=== PATIENT | male | born 1975 | race Hispanic/Latino ===

== ENCOUNTER 2017-11-10 04:34 | Emergency (ER) | payer SELFPAY ==
[2017-11-10] MEDS ORDERED: MOTRIN PO ONE (05:45)
[2017-11-10] MEDS ORDERED: PERCOCET 5/325 PO ONE (05:45)
--- NOTE | 2017-11-10 05:54 | Emergency Department Report ---
ED Extremity Problem HPI - General Chief complaint: Pain General Stated complaint: RT HAND INJURY Time Seen by Provider: 11/10/17 05:39 Source: patient Mode of arrival: Ambulatory Limitations: No Limitations - History of Present Illness Initial comments: Patient is a 42-year-old male who is complaining of pain at the right elbow and some sensation to the right fourth and fifth digits. Patient states 2 days ago he was swinging a hammer and he felt pops sensation in his right elbow. Patient states he physically felt as though something popped out of place is able to straighten his elbow out and pulled his arm to the point where he didn't feel as though it was deformed anymore. Since that time patient has had pain in the fourth and fifth digit. Patient states they feel cold. Patient states the pain is 10 out of 10 in severity. - Related Data Previous Rx's Medication Instructions Recorded Last Taken Type Cetirizine HCl [ZyrTEC] 10 mg PO DAILY #30 tab.chew 12/11/15 Unknown Rx Permethrin 5% [Acticin 5% CREAM] 1 applicatio TP ONCE #1 tube 12/20/15 Unknown Rx Acetaminophen/Codeine [Tylenol #3] 1 tab PO Q6H PRN #12 tab 03/15/16 Unknown Rx HYDROcodone/APAP 5-325 [[place] 1 each PO Q6HR PRN #15 tablet 11/10/17 Unknown Rx 5/325] Ibuprofen [Motrin] 800 mg PO Q8HR PRN #20 tablet 11/10/17 Unknown Rx Allergies Allergy/AdvReac Type Severity Reaction Status Date / Time No Known Allergies Allergy Unverified 03/04/15 13:58 ED Review of Systems ROS: Stated complaint: RT HAND INJURY Other details as noted in HPI Comment: All other systems reviewed and negative ED Past Medical Hx - Past Medical History Previous Medical History?: No - Surgical History Past Surgical History?: Yes Additional Surgical History: kirti femoral bone fx s/p - Social History Smoking Status: Never Smoker Substance Use Type: Alcohol - Medications Home Medications: Home Medications Medication Instructions Recorded Confirmed Last Taken Type Cetirizine HCl [ZyrTEC] 10 mg PO DAILY #30 tab.chew 12/11/15 Unknown Rx Permethrin 5% [Acticin 5% CREAM] 1 applicatio TP ONCE #1 tube 12/20/15 Unknown Rx Acetaminophen/Codeine [Tylenol #3] 1 tab PO Q6H PRN #12 tab 03/15/16 Unknown Rx HYDROcodone/APAP 5-325 [[place] 1 each PO Q6HR PRN #15 tablet 11/10/17 Unknown Rx 5/325] Ibuprofen [Motrin] 800 mg PO Q8HR PRN #20 tablet 11/10/17 Unknown Rx ED Physical Exam - General Limitations: No Limitations General appearance: alert, in no apparent distress - Head Head exam: Present: atraumatic, normocephalic - Eye Eye exam: Present: normal appearance - ENT ENT exam: Present: mucous membranes moist - Neck Neck exam: Present: normal inspection - Respiratory Respiratory exam: Present: normal lung sounds bilaterally. Absent: respiratory distress - Cardiovascular Cardiovascular Exam: Present: regular rate, normal rhythm. Absent: systolic murmur, diastolic murmur, rubs, gallop - GI/Abdominal GI/Abdominal exam: Present: soft, normal bowel sounds - Rectal Rectal exam: Present: deferred - Extremities Exam Extremities exam: Present: normal inspection, tenderness (patient states he has some modest discomfort in the right elbow. Patient also states that the fourth and fifth fingers are painful on palpation as well. There is some decreased capillary refill on those fingers however he does have some reddening of the area nail bed. These 2 fingers are cooler to touch than the other fingers. He has full range of motion to all of his fingers on his right hand. Palm of the hand is unaffected as well. Patient has a good radial pulse present.). Absent : joint swelling - Back Exam Back exam: Present: normal inspection - Neurological Exam Neurological exam: Present: alert, oriented X3 - Psychiatric Psychiatric exam: Present: normal affect, normal mood - Skin Skin exam: Present: warm, dry, intact, normal color. Absent: rash ED Course Vital Signs 11/10/17 11/10/17 04:52 05:17 Temperature 98.3 F Pulse Rate 63 Respiratory 16 16 Rate Blood Pressure 132/90 O2 Sat by Pulse 98 98 Oximetry ED Medical Decision Making - Medical Decision Making X-ray of the hand and right elbow showed no bony abnormality. Patient was placed in a posterior long-arm splint and will be discharged to follow-up with Dr. Jacinto with orthopedics. Critical care attestation.: If time is entered above; I have spent that time in minutes in the direct care of this critically ill patient, excluding procedure time. ED Disposition Clinical Impression: Injury of musculoskeletal system Disposition: DC- TO HOME OR SELFCARE Is pt being admited?: No Does the pt Need Aspirin: No Condition: Stable Instructions: Elbow Sprain (ED) Referrals: BRYAN JACINTO MD [Staff Physician] - 3-5 Days Time of Disposition: 05:54
--- NOTE | 2017-11-10 06:02 | XRay Report ---
FINAL REPORT PROCEDURE: XR ELBOW 2V RT TECHNIQUE: RIGHT elbow radiographs, including AP and lateral views. HISTORY: Right hand numbness COMPARISON: No prior studies are available for comparison. FINDINGS: Fracture (s) and/or Dislocation(s): None . Alignment: Normal . Joint space(s): Normal . Soft tissues: Normal . Bone mineralization: Normal . Foreign bodies: None . IMPRESSION: Normal Examination
--- NOTE | 2017-11-10 06:23 | XRay Report ---
FINAL REPORT PROCEDURE: XR HAND 2V RT TECHNIQUE: RIGHT hand radiographs, AP, lateral, and oblique views. CPT 77868-VF HISTORY: Right hand numbness COMPARISON: No prior studies are available for comparison. FINDINGS: Fracture (s) and/or Dislocation(s): None . Alignment: Normal . Joint space(s): Normal . Soft tissues: Normal . Bone mineralization: Normal . Foreign bodies: None . IMPRESSION: Normal Examination .
[2017-11-10 06:28] VITALS: BP 109/70
== END 2017-11-10 06:27 | disposition home or self-care (01) ==
LOC: ED 04:34
DX: S59.901A Unspecified injury of right elbow, initial encounter (principal); X58.XXXA Exposure to other specified factors, initial encounter; Y93.89 Activity, other specified; Y92.89 Other specified places as the place of occurrence of the external cause; Y99.8 Other external cause status
CPT/HCPCS: 99283

== ENCOUNTER 2017-11-11 03:33 | Emergency (ER) | payer SELFPAY ==
--- NOTE | 2017-11-11 07:19 | Emergency Department Report ---
ED Upper Extremity Inj HPI - General Chief Complaint: Extremity Problem,Nontraumatic Stated Complaint: HAND PAIN Time Seen by Provider: 11/11/17 07:14 Source: patient Mode of arrival: Ambulatory Limitations: No Limitations - History of Present Illness Initial Comments: This is a 42-year-old male who presents to the emergency room with an insect bite all over and complained of sensation of foreign object in the right hand from laceration. Patient states he is homeless right now and sling and a different details. Patient states when he woke up this morning and he was covered in insect bites that are pruritic and his right hand felt numb. Patient states he cut it right fourth finger on a before meals unit yesterday while working. He continued to work because he was able to stop the bleeding. This morning and it feels like something is stuck in his finger and fingertips have tingling sensation. Patient denies taken medication, swelling, redness, nausea or vomiting, or chest pain. MD Complaint: Injury to:: right, hand -: This morning Other Injuries: abdomen Handedness: right Place: other (hotel) Improves With: none Worsens With: movement of extremity Context: laceration (right fourth finger laceration), other (insect bite) Associated Symptoms: suspects foreign body - Related Data Previous Rx's Medication Instructions Recorded Last Taken Type Cetirizine HCl [ZyrTEC] 10 mg PO DAILY #30 tab.chew 12/11/15 Unknown Rx Permethrin 5% [Acticin 5% CREAM] 1 applicatio TP ONCE #1 tube 12/20/15 Unknown Rx Acetaminophen/Codeine [Tylenol #3] 1 tab PO Q6H PRN #12 tab 03/15/16 Unknown Rx HYDROcodone/APAP 5-325 [[place] 1 each PO Q6HR PRN #15 tablet 11/10/17 Unknown Rx 5/325] Ibuprofen [Motrin] 800 mg PO Q8HR PRN #20 tablet 11/10/17 Unknown Rx Prednisone [predniSONE 10 mg 10 mg PO .TAPER #1 tab.ds.pk 11/11/17 Unknown Rx (6-Day Pack, 21 Tabs)] hydrOXYzine HCl [Hydroxyzine HCl] 25 mg PO Q6H PRN #15 tablet 11/11/17 Unknown Rx Allergies Allergy/AdvReac Type Severity Reaction Status Date / Time No Known Allergies Allergy Unverified 03/04/15 13:58 ED Review of Systems ROS: Stated complaint: HAND PAIN Other details as noted in HPI Constitutional: denies: chills, fever Respiratory: denies: cough, shortness of breath, wheezing Cardiovascular: denies: chest pain, palpitations Gastrointestinal: denies: abdominal pain, nausea, diarrhea Musculoskeletal: denies: back pain, joint swelling Skin: rash (generalized pruritic rash), lesions (laceration to fourth proximal finger) Neurological: denies: headache, weakness, paresthesias Psychiatric: denies: anxiety, depression ED Past Medical Hx - Past Medical History Previous Medical History?: No - Surgical History Past Surgical History?: No Additional Surgical History: kirti femoral bone fx s/p - Social History Smoking Status: Never Smoker Substance Use Type: None - Medications Home Medications: Home Medications Medication Instructions Recorded Confirmed Last Taken Type Cetirizine HCl [ZyrTEC] 10 mg PO DAILY #30 tab.chew 12/11/15 Unknown Rx Permethrin 5% [Acticin 5% CREAM] 1 applicatio TP ONCE #1 tube 12/20/15 Unknown Rx Acetaminophen/Codeine [Tylenol #3] 1 tab PO Q6H PRN #12 tab 03/15/16 Unknown Rx HYDROcodone/APAP 5-325 [[place] 1 each PO Q6HR PRN #15 tablet 11/10/17 Unknown Rx 5/325] Ibuprofen [Motrin] 800 mg PO Q8HR PRN #20 tablet 11/10/17 Unknown Rx Prednisone [predniSONE 10 mg 10 mg PO .TAPER #1 tab.ds.pk 11/11/17 Unknown Rx (6-Day Pack, 21 Tabs)] hydrOXYzine HCl [Hydroxyzine HCl] 25 mg PO Q6H PRN #15 tablet 11/11/17 Unknown Rx ED Physical Exam - General Limitations: No Limitations General appearance: alert, in no apparent distress - Respiratory Respiratory exam: Present: normal lung sounds bilaterally. Absent: respiratory distress - Cardiovascular Cardiovascular Exam: Present: regular rate, normal rhythm. Absent: systolic murmur, diastolic murmur, rubs, gallop - GI/Abdominal GI/Abdominal exam: Present: soft, normal bowel sounds. Absent: organomegaly, mass - Extremities Exam Extremities exam: Present: normal capillary refill. Absent: pedal edema, calf tenderness - Expanded Upper Extremity Exam Right Shoulder Exam: Present: normal inspection, full ROM Upper Arm exam: Present: normal inspection, full ROM Elbow exam: Present: normal inspection, full ROM Forearm Wrist exam: Present: normal inspection, full ROM Hand Wrist exam: Present: full ROM, tenderness (tenderness to palpation of #4 and #5, painful active range of motion). Absent: swelling, ecchymosis, deformity, crepidus, dislocation, amputation, nail avulsion, subungual hematoma Neuro motor exam: Present: wrist extension intact, thumb opposition intact, thumb IP flexion intact, thumb adduction intact, fingers 2-5 abduction intact Neurosensory exam: Present: radial nerve intact, ulnar nerve intact, median nerve intact Vascular: Present: radial pulse (+2). Absent: normal capillary refill ( decreased capillary refill on family #4 and #5) - Neurological Exam Neurological exam: Present: alert, oriented X3 - Psychiatric Psychiatric exam: Present: normal affect, normal mood - Skin Skin exam: Present: warm, dry, intact, normal color. Absent: rash ED Course Vital Signs 11/11/17 03:42 Temperature 98.4 F Pulse Rate 74 Respiratory 18 Rate Blood Pressure 136/86 O2 Sat by Pulse 99 Oximetry ED Medical Decision Making - Medical Decision Making Patient was examined by myself in fast track. Vitals are normal and patient is in no acute distress. Patient was seen here in the emergency room yesterday with similar symptoms. Patient was given scripts and referrals. Patient states he was unable to fill scripts because he does not have a ID. Patient given tramadol 50 mg by mouth once while in ER. Start Vistaril and prednisone taper for insect bites. Patient given referrals to follow-up with vascular and/or orthopedic surgery for muscular injury of right hand. Plan discussed with patient to discharge home and treat outpatient. He agrees with ER plan. Patient discharged home in stable condition. Follow up with PCP in 2-3 days. Critical care attestation.: If time is entered above; I have spent that time in minutes in the direct care of this critically ill patient, excluding procedure time. ED Disposition Clinical Impression: Infestation by bed bug, Injury of musculoskeletal system Disposition: TO HOME OR SELFCARE Is pt being admited?: No Does the pt Need Aspirin: No Condition: Stable Instructions: Insect Bite or Sting (ED), Hand Sprain (ED) Additional Instructions: Take medication as directed. Follow up with the selective referral given at discharge. Clean clothing, bed linens and towels in hot water and machine dry them the day after treatment is initiated and 1 week later. Follow up with orthopedic surgery for evaluation of musculoskeletal pain from referrals. Prescriptions: hydrOXYzine HCl [Hydroxyzine HCl] 25 mg PO Q6H PRN #15 tablet PRN Reason: Itching Prednisone [predniSONE 10 mg (6-Day Pack, 21 Tabs)] 10 mg PO .TAPER #1 tab.ds.pk Referrals: BRYAN KINNEY MD [Staff Physician] - 3-5 Days SHLOMO EID MD [Staff Physician] - 3-5 Days [facility] [Outside] - 3-5 Days [facility] [Outside] - 3-5 Days Time of Disposition: 07:49 Print Language: BRAZILIAN
[2017-11-11] MEDS ORDERED: ULTRAM PO ONE (07:55)
[2017-11-11 08:27] VITALS: BP 132/82
== END 2017-11-11 08:25 | disposition home or self-care (01) ==
LOC: ED 03:33
DX: M79.641 Pain in right hand (principal)
CPT/HCPCS: 99283

== ENCOUNTER 2017-11-14 15:23 | Emergency (ER) | payer SELFPAY | END 2017-11-14 15:30 | disposition left against medical advice (07) | LOC: ED 15:23 | DX: R07.89 Other chest pain (principal); Z53.21 Procedure and treatment not carried out due to patient leaving prior to being seen by health care provider ==

== ENCOUNTER 2018-09-28 10:56 | Outpatient (CLI) | payer OTHER ==
--- NOTE | 2018-09-28 12:30 | Cat Scan Report ---
CT HEAD WITHOUT CONTRAST INDICATION : Head injury, laceration on back of head, syncope. TECHNIQUE: Axial imaging performed from the skull apex through the skull base without the use of con trast. All CT scans at this location are performed using CT dose reduction for ALARA by means of aut omated exposure control. COMPARISON: None FINDINGS: Parenchyma: No acute intracranial hemorrhage or parenchymal abnormality. Ventricles: Ventricles are normal in size and appear symmetric. Soft tissues: Soft tissues including the orbits appear normal. Bones: No acute osseous abnormality. Sinuses: Sinuses and mastoid air cells are clear. IMPRESSION: No acute abnormality. Signer Name: Vahid Jones Jr, MD Signed: 09/28/2018 12:26 PM Workstation Name: [id number]
== END 2018-09-28 10:57 | disposition home or self-care (01) ==
LOC: CT 10:56
PROVIDERS: ATTEND Family Medicine
DX: R55 Syncope and collapse (principal)
CPT/HCPCS: 70450